=== PATIENT | male | born 1955 | race Caucasian/White ===

== ENCOUNTER 2021-04-23 08:36 | Outpatient (CLI) | payer MEDICARE ==
[2021-04-23] MEDS ORDERED: GABA-826 PO (08:58)
[2021-04-23] MEDS ORDERED: CBD OIL (08:58)
== END 2021-04-23 23:59 | disposition home or self-care (01) ==
LOC: STAR 08:36
PROVIDERS: ATTEND Orthopaedic Surgery
DX: Z01.818 Encounter for other preprocedural examination (principal); M72.0 Palmar fascial fibromatosis [Dupuytren]
CPT/HCPCS: 93005

== ENCOUNTER 2021-04-30 11:01 | Day surgery (SDC) | payer MEDICARE ==
[~2021-04-30] VITALS: Ht 177.8 cm; Wt 75.3 kg
[~2021-04-30 11:01] MED LIST: CBD OIL; GABA-826 PO
[2021-04-30 12:03] VITALS: BP 129/92
[2021-04-30] MEDS ORDERED: CHLORHEXIDINE 15 ML UDC ONE (12:07)
[2021-04-30] MEDS ORDERED: LACTATED RINGERS 1,000 ML IV SCH (12:30)
[2021-04-30] MEDS ORDERED: CHLORHEXIDINE 15 ML UDC PO ONE (12:30)
[2021-04-30] MEDS ORDERED: FENTANYL PF 100 MCG/2ML ONE (12:57)
[2021-04-30] MEDS ORDERED: MIDAZOLAM 1 MG/ML, 2ML ONE (12:57)
[2021-04-30] MEDS ORDERED: FENTANYL PF 100 MCG/2ML IV PRN (13:00)
[2021-04-30] MEDS ORDERED: ONDANSETRON 2MG/ML, 2ML IVPush PRN (13:00)
[2021-04-30] MEDS ORDERED: OXYcodone 5 MG/5 ML ORAL.SOL UDC PO PRN (13:00)
[2021-04-30] MEDS ORDERED: PROMETHAZINE 25 MG/ML, 1ML IVPush PRN (13:00)
[2021-04-30] MEDS ORDERED: MEPERIDINE/PF 25MG/0.5ML IVPush PRN (13:00)
[2021-04-30] MEDS ORDERED: HYDROmorphone 1 MG/ML, 1ML INJ IVPush PRN (13:00)
[2021-04-30] MEDS ORDERED: HYDROcodone/APAP 7.5-325MG/15ML UDC PO PRN (13:00)
[2021-04-30] MEDS ORDERED: BUPIVACAINE/PF 0.5% ONE (13:26)
[2021-04-30] MEDS ORDERED: PROPOFOL 10 MG/ML, 20ML ONE (14:08)
[2021-04-30] MEDS ORDERED: CEFAZOLIN 1,000 MG ONE (14:08)
[2021-04-30] MEDS ORDERED: GLYCOPYRROLATE 0.2MG/1ML, 5ML ONE (14:08)
[2021-04-30] MEDS ORDERED: ROCURONIUM 10MG/ML,5ML ONE (14:08)
[2021-04-30] MEDS ORDERED: DEXAMETHASONE 4 MG/ML, 1ML ONE (14:08)
[2021-04-30] MEDS ORDERED: NEOSTIGMINE 1 MG/ML, 10ML ONE (14:08)
[2021-04-30] MEDS ORDERED: SUCCINYLCHOLINE 20 MG/ML, 10ML ONE (14:08)
[2021-04-30] MEDS ORDERED: ONDANSETRON 2MG/ML, 2ML ONE (14:08)
== END 2021-04-30 16:45 | disposition home or self-care (01) ==
LOC: OUT 11:01
PROVIDERS: ATTEND Orthopaedic Surgery
DX: M72.0 Palmar fascial fibromatosis [Dupuytren] (principal); M19.041 Primary osteoarthritis, right hand; G62.9 Polyneuropathy, unspecified; I10 Essential (primary) hypertension; Z20.822 Contact with and (suspected) exposure to COVID-19
CPT/HCPCS: 26123; 26125; 87635; 88304; J0330; J0690; J1100; J2250; J2405; J2704; J2710; J3010; J7120

== ENCOUNTER 2021-05-07 08:01 | Outpatient (CLI) | payer MEDICARE ==
[2021-05-07 08:23] LABS: BASOPHILS % (AUTO) 1 % (0-1); EOSINOPHILS % (AUTO) 1 % (1-7); LYMPHOCYTES % (AUTO) 21 % (22-44); MEAN CORPUSCULAR HEMOGLOBIN 31.4 pg (27.5-34.5); MEAN CORPUSCULAR HGB CONC 34.4 g/dL (33.2-36.2); MEAN PLATELET VOLUME 9.3 fL (7.4-10.4); MONOCYTES % (AUTO) 9 % (2-9); NEUTROPHILS % (AUTO) 69 % (42-75); PLATELET COUNT 254 x10^3/uL (130-400); RED CELL DISTRIBUTION WIDTH 12.7 % (9.4-14.8)
[2021-05-07 08:34] LABS: ALBUMIN 3.9 g/dL (3.4-5.0); ANION GAP 9 mmol/L (5-15); CALCIUM 8.6 mg/dL (8.5-10.1); CHLORIDE 102 mmol/L (98-107)
[2021-05-07 08:45] LABS: ALANINE AMINOTRANSFERASE 19 U/L (12-78); ALKALINE PHOSPHATASE 55 U/L (45-117); BILIRUBIN,TOTAL 0.8 mg/dL (0.2-1.0); CHOL/HDL RATIO 3.7; CHOLESTEROL, TOTAL 160 mg/dL (140-239); CREATININE 0.81 mg/dL (0.7-1.3); HDL CHOL % 27 % (26-37); HDL CHOLESTEROL (DIRECT) 43 mg/dL (40-60); LDL CHOLESTEROL,CALCULATED 89 mg/dL (54-169); LDL/HDL RATIO 2.1 (0.5-3.0); TOTAL PROTEIN 7.2 g/dL (6.4-8.2); TRIGLYCERIDES 139 mg/dL (50-200); VLDL CHOLESTEROL 28 mg/dL (0-25)
== END 2021-05-07 23:59 | disposition home or self-care (01) ==
LOC: LAB 08:01
PROVIDERS: ATTEND Family Medicine
DX: Z00.01 Encounter for general adult medical examination with abnormal findings (principal)
CPT/HCPCS: 36415; 80053; 80061; 83036; 84153; 84443; 85025; 86803